=== PATIENT | female | born 1970 | race Caucasian/White ===

== ENCOUNTER 2017-02-21 09:26 | Day surgery (SDC) | payer OTHER ==
[2017-02-21] VITALS (25 sets, daily range): BP systolic 140–170; BP diastolic 61–88; PULSE 70–99; RESP 15–39; Ht 144.8 cm; Wt 70.0 kg
[~2017-02-21] VITALS: Ht 144.8 cm; Wt 70.0 kg
[~2017-02-21 09:26] MED LIST: ATOR40TA68 PO; CAPT25TA3 PO; CEFAZOLIN 2 GM/50 ML (PMX) 50 ML IVPB SCH; METF1000 PO; OMEP20CA16 PO; SOD CHLORIDE 0.9% 1,000 ML IV SCH
[2017-02-21] MEDS ORDERED: DAPA10TA PO (10:38)
[2017-02-21] MEDS ORDERED: CAPT25TA3 PO (10:38)
[2017-02-21] MEDS ORDERED: BUPIVACAINE 0.25% (MPF) 30 ML INJ ONE (12:49)
[2017-02-21] MEDS ORDERED: GLYCOPYRROLATE 0.4 MG INJ ONE (13:03)
[2017-02-21] MEDS ORDERED: PROPOFOL 20 ML ONE (13:03)
[2017-02-21] MEDS ORDERED: ROCURONIUM 50 MG INJ ONE (13:03)
[2017-02-21] MEDS ORDERED: NEOSTIGMINE 3 MG/3 ML SYRINGE ONE (13:04)
[2017-02-21] MEDS ORDERED: CEFAZOLIN 1 GM INJ ONE (13:04)
[2017-02-21] MEDS ORDERED: ONDANSETRON 4 MG INJ ONE (13:05)
[2017-02-21] MEDS ORDERED: FENTAnyl 50 MCG/ML VIAL ONE ×3 (13:05→13:54)
[2017-02-21] MEDS ORDERED: MIDAZOLAM 1 MG/ML 2 ML INJ ONE (13:05)
[2017-02-21] MEDS ORDERED: DEXAMETHASONE 4 MG/ML 1 ML INJ ONE (13:05)
[2017-02-21] MEDS ORDERED: DIPHENHYDRAMINE 50 MG INJ IV PRN (14:00)
[2017-02-21] MEDS ORDERED: LABETALOL HCL 20MG INJ IV PRN (14:00)
[2017-02-21] MEDS ORDERED: OXYCODONE/ACETAMINOPHEN (5/325) TAB PO PRN ×2 (14:00)
[2017-02-21] MEDS ORDERED: IPRATROPIUM (NEB) 0.5 MG/2.5 ML AMP HHN PRN (14:00)
[2017-02-21] MEDS ORDERED: ONDANSETRON 4 MG INJ IV PRN (14:00)
[2017-02-21] MEDS ORDERED: EPHEDrine SULFATE 50 MG/5 ML SYG IV PRN (14:00)
[2017-02-21] MEDS ORDERED: FENTAnyl 50 MCG/ML VIAL IV PRN ×3 (14:00)
[2017-02-21] MEDS ORDERED: MIDAZOLAM 1 MG/ML 2 ML INJ IV PRN (14:00)
[2017-02-21] MEDS ORDERED: MEPERIDINE 25 MG INJ IV PRN (14:00)
[2017-02-21] MEDS ORDERED: hydrALAzine 20 MG INJ IV PRN (14:00)
[2017-02-21] MEDS ORDERED: HYDROmorphONE (0.2 MG/ML) 10ML SYG IV PRN ×2 (14:00)
[2017-02-21] MEDS ORDERED: ALBUTEROL 0.083% (NEB) 2.5 MG/3 ML AMP HHN PRN (14:00)
[2017-02-21] MEDS ORDERED: TRIMETHOBENZAMIDE 100 MG/ML VIAL IM PRN (14:00)
--- NOTE | 2017-02-21 14:08 | OPR ---
Date/Time of Note Date/Time of Note DATE: 02/21/17 TIME: 14:03 Operative Report Procedure Date: Feb 21, 2017 Preoperative Diagnosis symptomatic gallstones Postoperative Diagnosis same Operation Performed 1. laparoscopic cholecystectomy 2. wedge liver biopsy cpt code 82037 3. therapeutic injection of subcutaneous marcaine cpt code 85990 Surgeon: Irving HOWELL Anesthesia Type: general Estimated Blood Loss: 10 - 50 ml's Specimens gallbladder wedge liver biopsy Grafts/Implants: none Complications: no Indications This is a 46-year-old female with symptomatic gallstones and fatty liver infiltration. She required surgical excision of her gallbladder and a lymph were biopsied. Risks alternatives benefits and percent were discussed with the patient. Patient expresses understanding consents to the operation. Procedure Description Patient is taken to the OR and prepped and draped in usual sterile fashion. Surgical timeout was performed. IV antibiotics were given. Infraumbilical transverse incision is made with a 15 blade. Dissection cautery was carried onto the fascia. The fascia was grasped with Dena's and divided with curved Downing scissors. 0 Vicryl U stitch was placed to the fascia. Ball[place] trocar is introduced pneumoperitoneum is established. Midepigastric 12 mm optical trocar was placed under direct visualization. Right upper quadrant right upper flank 5 mm optical trocars are placed under direct visualization. Upon initial inspection there are some adhesions to the gallbladder which were taken down bluntly. The gallbladder was grasped and retracted in a lateral and outward direction. Lateral dissection was performed with cautery. The cystic duct was carefully dissected out. 3 clips were placed proximally on the cystic duct. The distal cystic duct was thickened with tissue was divided with a 35 mm echelon vascular stapler. The cystic artery was divided with 3 clips proximal 1 clip distal. The gallbladder was taken of the gallbladder bed. There is good hemostasis. Wedge liver biopsy was then performed in segment 5 with scissor cautery. There is good hemostasis. The wedge liver biopsy was then retracted through the midepigastric port. The gallbladder was retrieved using an Endo Catch bag. Suction irrigation was used minimally. Ports removed under direct visualization. 0 Vicryl U stitch was tied down. Skin was closed using skin jay. Therapeutic case Marcaine was injected into all port sites. There are no issues and dry dressings were applied. Irving HOWELL Feb 21, 2017 14:08
[2017-02-21] MEDS ORDERED: HYDROCODONE/APAP (5/325) TAB PO ONE (14:30)
[2017-02-21] MEDS: HYDROmorphONE (0.2 MG/ML) 10ML SYG IV PRN ×2 (15:21→15:35)
[2017-02-27] MEDS ORDERED: PHENYLephrine (100 MCG/ML) 5ML SYG ONE (14:26)
== END 2017-02-21 19:00 | disposition home or self-care (01) ==
LOC: SDS 09:26
PROVIDERS: ATTEND Surgery
DX: K80.10 Calculus of gallbladder with chronic cholecystitis without obstruction (principal); K76.0 Fatty (change of) liver, not elsewhere classified; E11.9 Type 2 diabetes mellitus without complications; I10 Essential (primary) hypertension; E78.5 Hyperlipidemia, unspecified; E66.9 Obesity, unspecified; Z68.33 Body mass index [BMI] 33.0-33.9, adult
CPT/HCPCS: 47379; 47562; 82962; 84703; 88304; 88307; 88313; J0360; J0690; J1100; J1170; J1200; J2250; J2405; J2710; J3010; Z7512; Z7610

== ENCOUNTER 2017-03-13 11:07 | Emergency (ER) | payer OTHER ==
[~2017-03-13] VITALS: Ht 152.4 cm; Wt 68.0 kg
[~2017-03-13 11:07] MED LIST changes: -ATOR40TA68 PO; -CEFAZOLIN 2 GM/50 ML (PMX) 50 ML IVPB SCH; +DAPA10TA PO; -SOD CHLORIDE 0.9% 1,000 ML IV SCH
[2017-03-13 11:10] VITALS: Ht 152.4 cm; Wt 68.0 kg
--- NOTE | 2017-03-13 17:03 | ERD ---
ER Documentation Chief Complaint Date/Time DATE: 03/13/17 TIME: 17:01 Chief Complaint PT HAS GALLBLADDER SURGERY ON Jan, ABD PAIN, YELLOWISH DISCHARGES HPI 46-year-old female diabetic, hypertensive, hyperlipidemic, status post laparoscopic cholecystectomy 02/21/2017 presents the ED complaining of pain and discharge from the infra umbilical wound. She was doing well until 3 days ago and began to experience mild, worsening, sharp and crampy infraumbilical pain and this morning there was a large amount of yellowish drainage from the wound. Denies nausea, vomiting, diarrhea or constipation. No chest pain, palpitations or shortness of breath. Denies dysuria, polyuria or hematuria. No flank pain. No fevers or chills. ROS All systems reviewed and are negative except as per history of present illness. Medications Home Meds Reported Medications Dapagliflozin Propanediol (Farxiga) 10 Mg Tablet, 10 MG PO DAILY, #30 TAB 02/21/17 Captopril* (Captopril*) 25 Mg Tablet, 25 MG PO BID, #60 TAB 02/21/17 Omeprazole* (Omeprazole*) 20 Mg Capsule.dr, 20 MG PO DAILY, #30 CAP 04/26/16 Metformin Hcl* (Metformin Hcl*) 1,000 Mg Tablet, 1000 MG PO BID, #30 TAB 04/26/16 Allergies Allergies: Coded Allergies: shrimp (Verified Allergy, Unknown, THROAT SWELLING, 04/26/16) PMhx/Soc Reviewed in chart. As per HPI History of Surgery: Yes (KIDNEY STONES/GALLSTONES 2008/appendectomy 02/21/17) Anesthesia Reaction: Yes (LIDOCAINE:DIFFICULTY OF BREATHING) Hx Neurological Disorder: No Hx Respiratory Disorders: No Hx Cardiac Disorders: Yes (HTN, hyperlipidemia) Hx Psychiatric Problems: No Hx Miscellaneous Medical Probl: Yes (DM ) Hx Alcohol Use: No Hx Substance Use: No Hx Tobacco Use: No Smoking Status: Never smoker FmHx Not relevant to presenting complain Physical Exam Vitals Vital Signs Date Time Temp Pulse Resp B/P Pulse Ox O2 Delivery O2 Flow Rate FiO2 03/13/17 16:54 98.0 90 22 141/76 100 Room Air 03/13/17 11:10 98.0 99 19 131/73 99 Physical Exam Const: [] Head: Atraumatic Eyes: Normal Conjunctiva ENT: Normal External Ears, Nose and Mouth. Neck: Full range of motion..~ No meningismus. Resp: Clear to auscultation bilaterally Cardio: Regular rate and rhythm, no murmurs Abd: Soft, non tender, non distended. Normal bowel sounds Skin: No petechiae or rashes Back: No midline or flank tenderness Ext: No cyanosis, or edema Neur: Awake and alert Psych: Normal Mood and Affect Result Diagram: 03/13/17 1712 03/13/17 1712 Results 24 hrs Laboratory Tests Test 03/13/17 17:12 03/13/17 17:23 White Blood Count 12.610^3/ul Red Blood Count 5.0910^6/ul Hemoglobin 13.0g/dl Hematocrit 41.0% Mean Corpuscular Volume 80.6fl Mean Corpuscular Hemoglobin 25.5pg Mean Corpuscular Hemoglobin Concent 31.7g/dl Red Cell Distribution Width 16.9% Platelet Count 16478^3/UL Mean Platelet Volume 9.3fl Neutrophils % 68.0% Lymphocytes % 25.3% Monocytes % 5.2% Eosinophils % 1.0% Basophils % 0.2% Nucleated Red Blood Cells % 0.0/100WBC Neutrophils # 8.510^3/ul Lymphocytes # 3.210^3/ul Monocytes # 0.710^3/ul Eosinophils # 0.110^3/ul Basophils # 0.010^3/ul Nucleated Red Blood Cells # 0.010^3/ul Sodium Level 135mmol/L Potassium Level 4.3mmol/L Chloride Level 103mmol/L Carbon Dioxide Level 22mmol/L Anion Gap 14 Blood Urea Nitrogen 14mg/dl Creatinine 0.65mg/dl Glucose Level 145mg/dl Calcium Level 9.6mg/dl Total Bilirubin 0.2mg/dl Direct Bilirubin 0.00mg/dl Indirect Bilirubin 0.2mg/dl Aspartate Amino Transf (AST/SGOT) 39IU/L Alanine Aminotransferase (ALT/SGPT) 53IU/L Alkaline Phosphatase 105IU/L Total Protein 8.2g/dl Albumin 4.3g/dl Globulin 3.90g/dl Albumin/Globulin Ratio 1.10 Lipase 87U/L Urine Color YELLOW Urine Clarity SLIGHTLY CLOUDY Urine pH 5.0 Urine Specific [place] 1.036 Urine Ketones NEGATIVEmg/dL Urine Nitrite NEGATIVEmg/dL Urine Bilirubin NEGATIVEmg/dL Urine Urobilinogen NEGATIVEmg/dL Urine Leukocyte Esterase 1+Dong/ul Urine Microscopic RBC 5/HPF Urine Microscopic WBC 48/HPF Urine Squamous Epithelial Cells FEW/HPF Urine Bacteria FEW/HPF Urine Mucus FEW/HPF Urine Hemoglobin NEGATIVEmg/dL Urine Glucose 3+mg/dL Urine Total Protein NEGATIVEmg/dl Current Medications Medications (Trade) Dose Ordered Sig/Sindi Route PRN Reason Start Time Stop Time Status Last Admin Dose Admin Ketorolac Tromethamine (Toradol) 15 mg ONCE STAT IV 03/13/17 17:14 03/13/17 17:15 DC 03/13/17 17:26 Procedures/MDM DOCUMENTS REVIEWED: ED nurse prior records including lap cholecystectomy op report From 02/21/2017 and pathology report wedge liver biopsy which was negative for malignancy REEXAMINATION/REEVALUATION: Time: 18:15. Doing well. Feels better. [employer] DECISION MAKIN-year-old female diabetic, hypertensive, hyperlipidemic, status post laparoscopic cholecystectomy 02/21/2017 presents the ED complaining of pain and discharge from the infra umbilical wound. Clear, yellow serous drainage likely secondary to fat necrosis versus seroma. Doubt wound infection or abscess however as the patient is diabetic will be given a short course of Keflex prophylactically. Abdominal exam is otherwise benign without rebound, guarding or signs of peritonitis. Advanced imaging is not indicated. Stable for discharge with appropriate analgesics and urgent outpatient follow-up with surgery. Patient understands return to the ED for any worsening symptoms including fever, drainage, redness, pain, nausea or vomiting. CALLS/CONSULTS: Time: 17:03. Dr Vargas. Recommends wound care and discharge with outpatient follow-up. Counseled patient and family regarding diagnostic workup, diagnosis and need for followup. Understands to return to ED if symptoms recur, worsen or any other concerns. Departure Diagnosis: Primary Impression: Abdominal pain Abdominal location: periumbilical Qualified Code: R10.33 - Periumbilical abdominal pain Additional Impressions: Postoperative complication Surgical complication system/body Area: digestive system Surgical complication type: seroma Procedure type: digestive system Qualified Code: K91.872 - Postoperative seroma involving digestive system after digestive system procedure Diabetes mellitus type 2 in obese Condition: Stable CLINT RAE MD Mar 13, 2017 17:03
[2017-03-13] MEDS ORDERED: KETOROLAC 15 MG INJ IV STA (17:14)
[2017-03-13 17:22] LABS: BASOPHILS % 0.2 % (0.0-2.0); EOSINOPHILS # 0.1 10^3/ul (0.0-0.5); LYMPHOCYTES # 3.2 10^3/ul (0.8-2.9); LYMPHOCYTES % 25.3 % (15.0-51.0); MEAN CORPUSCULAR HEMOGLOBIN 25.5 pg (29.0-33.0); MEAN CORPUSCULAR HGB CONC 31.7 g/dl (32.0-37.0); MEAN CORPUSCULAR VOLUME 80.6 fl (82.0-101.0); MEAN PLATELET VOLUME 9.3 fl (7.4-10.4); MONOCYTE # 0.7 10^3/ul (0.3-0.9); MONOCYTES % 5.2 % (0.0-11.0); NEUTROPHIL # 8.5 10^3/ul (1.6-7.5); PLATELET COUNT 545 10^3/UL (140-415); RED BLOOD COUNT 5.09 10^6/ul (4.20-5.40); RED CELL DISTRIBUTION WIDTH 16.9 % (11.5-14.5); WHITE BLOOD COUNT 12.6 10^3/ul (4.8-10.8)
[2017-03-13 17:53] LABS: ALBUMIN 4.3 g/dl (3.3-4.9); ALBUMIN/GLOBULIN RATIO 1.1; BILIRUBIN,INDIRECT 0.2 mg/dl (0-1.1); BILIRUBIN,TOTAL 0.2 mg/dl (0.2-1.3); CALCIUM 9.6 mg/dl (8.4-10.2); CREATININE 0.65 mg/dl (0.44-1.00); POTASSIUM 4.3 mmol/L (3.5-5.1); TOTAL PROTEIN 8.2 g/dl (6.1-8.1)
[2017-03-13 18:20] LABS: ADD UMIC YES; UR ASCORBIC ACID NEGATIVE (NEGATIVE); UR BACTERIA FEW /HPF (NONE SEEN); UR BILIRUBIN (Dip) NEGATIVE (NEGATIVE); UR BLOOD (Dip) NEGATIVE (NEGATIVE); UR CLARITY SLIGHTLY CLOUDY (CLEAR); UR COLOR YELLOW (YELLOW); UR GLUCOSE (Dip) 3+ mg/dL (NEGATIVE); UR KETONES (Dip) NEGATIVE (NEGATIVE); UR LEUKOCYTE ESTERASE (Dip) 1+ Leu/ul (NEGATIVE); UR MUCUS FEW /HPF (NONE SEEN); UR NITRITE (Dip) NEGATIVE (NEGATIVE); UR RBC 5 /HPF (0-5); UR SPECIFIC GRAVITY (Dip) 1.036 (1.003-1.030); UR SQUAMOUS EPITHELIAL CELL FEW /HPF (FEW); UR TOTAL PROTEIN (Dip) NEGATIVE (NEGATIVE); UR UROBILINOGEN (Dip) NEGATIVE (NEGATIVE)
[2017-03-13] MEDS ORDERED: CEPH-443 PO (18:41)
[2017-03-13] MEDS ORDERED: TRAM50TA2 PO (18:42)
[2017-03-13 18:51] VITALS: BP 137/77; PULSE 69; RESP 18; TEMP 98.3
== END 2017-03-13 18:56 | disposition home or self-care (01) ==
LOC: E/R 11:07
DX: R10.33 Periumbilical pain (principal); K91.872 Postprocedural seroma of a digestive system organ or structure following a digestive system procedure; E11.9 Type 2 diabetes mellitus without complications; I10 Essential (primary) hypertension; Z79.84 Long term (current) use of oral hypoglycemic drugs
CPT/HCPCS: 36415; 80053; 81001; 83690; 85025; 96374; J1885; Z7502

== ENCOUNTER 2018-10-28 08:38 | Day surgery (SDC) | payer OTHER ==
[~2018-10-28] VITALS: Ht 152.4 cm; Wt 72.6 kg
[~2018-10-28 08:38] MED LIST changes: +CEPH-443 PO; -METF1000 PO; +METF100010 PO; +TRAM50TA2 PO
[2018-10-28 11:02] VITALS: BP 100/52; PULSE 94; RESP 20; Ht 152.4 cm; Wt 72.6 kg
[2018-10-28 11:25] VITALS: BP 128/68; PULSE 78; RESP 23
[2018-10-28 11:40] VITALS: BP 109/67; PULSE 78; RESP 21
[2018-10-28] MEDS ORDERED: FENTAnyl 50 MCG/ML VIAL ONE (11:42)
[2018-10-28] MEDS ORDERED: MIDAZOLAM 1 MG/ML 2 ML INJ ONE ×3 (11:42)
[2018-10-28 11:55] VITALS: BP 110/64; PULSE 78; RESP 18
[2018-10-28 12:10] VITALS: BP 109/62; PULSE 72; RESP 19
== END 2018-10-28 14:31 | disposition home or self-care (01) ==
LOC: GIL 08:38
PROVIDERS: ATTEND Internal Medicine Gastroenterology
DX: K92.1 Melena (principal); K64.8 Other hemorrhoids; K29.50 Unspecified chronic gastritis without bleeding; I10 Essential (primary) hypertension; E11.9 Type 2 diabetes mellitus without complications
CPT/HCPCS: 43239; 45380; 82962; 88305; 88312; J2250; J3010; Z7610